=== PATIENT | male | born 1955 | race Caucasian/White ===

== ENCOUNTER 2020-02-01 08:33 | Day surgery (SDC) | payer BC, MEDICARE ==
[2020-02-01] MEDS ORDERED: Depo-Medrol 40 MG/ML IM ONE (08:34)
[2020-02-01] MEDS ORDERED: Sodium Chloride 0.9(Preservative Free) 10 ML IJ ONE (08:34)
[2020-02-01] MEDS ORDERED: Ketamine HCl 50 MG/ML ONE (09:53)
[2020-02-01] MEDS ORDERED: DIPRIVAN 200 MG/20 ML IV ONE (09:53)
--- NOTE | 2020-02-01 11:08 | XRAY ---
Indication: Right L4-S1 transforaminal BECKI. Intraoperative fluoroscopy was provided for 41 seconds. 4 digital spot images submitted for interpretation demonstrates posterior needle tips projecting over the expected course of the right L4 and L5 nerve roots. Small amount of contrast injected for needle tip placement. Correlate with intraoperative findings/report.
--- NOTE | 2020-02-01 11:41 | XRAY ---
41 seconds fluoroscopy time in surgery for right L4-S1 transforaminal BECKI.
[2020-02-01] MEDS ORDERED: Lactated Ringers 1,000 ML IV ONE (15:48)
== END 2020-02-01 10:26 | disposition home or self-care (01) ==
LOC: SDC-PAIN 08:33
PROVIDERS: ATTEND Psychiatry & Neurology Pain Medicine
DX: M54.16 Radiculopathy, lumbar region (principal); E11.9 Type 2 diabetes mellitus without complications; I10 Essential (primary) hypertension; G47.30 Sleep apnea, unspecified; Z85.51 Personal history of malignant neoplasm of bladder; Z79.899 Other long term (current) drug therapy
CPT/HCPCS: 64483; 64484; 72100; 77003; 82962; J1030; J2704; Q9966

== ENCOUNTER 2020-02-22 07:32 | Day surgery (SDC) | payer BC ==
[2020-02-22] MEDS ORDERED: Sodium Chloride 0.9(Preservative Free) 10 ML IJ ONE (07:33)
[2020-02-22] MEDS ORDERED: Depo-Medrol 40 MG/ML IM ONE (07:33)
[2020-02-22] MEDS ORDERED: Ketamine HCl 50 MG/ML ONE (09:15)
[2020-02-22] MEDS ORDERED: DIPRIVAN 200 MG/20 ML IV ONE ×2 (09:15→09:39)
--- NOTE | 2020-02-22 12:31 | XRAY ---
Indication: Right L4-S1 transforaminal BECKI. Intraoperative fluoroscopy was provided for 39 seconds. 4 digital spot images submitted for interpretation demonstrates posterior needle tips projecting over the expected course of the right L4 and L5 nerve roots. Small amount of contrast injected for needle tip placement. Correlate with intraoperative findings/report.
--- NOTE | 2020-02-22 12:44 | XRAY ---
39 seconds of fluoroscopy was used in surgery for a right L4-L5 and L5-S1 transforaminal BECKI.
[2020-02-22] MEDS ORDERED: Lactated Ringers 1,000 ML IV ONE (14:38)
== END 2020-02-22 10:00 | disposition home or self-care (01) ==
LOC: SDC-PAIN 07:32
PROVIDERS: ATTEND Psychiatry & Neurology Pain Medicine
DX: M54.16 Radiculopathy, lumbar region (principal); E11.9 Type 2 diabetes mellitus without complications; I10 Essential (primary) hypertension; G47.30 Sleep apnea, unspecified; Z85.51 Personal history of malignant neoplasm of bladder; Z79.899 Other long term (current) drug therapy
CPT/HCPCS: 64483; 64484; 72100; 77003; 82962; J1030; J2704; Q9966